=== PATIENT | female | born 1985 | race Caucasian/White ===

== ENCOUNTER 2018-11-26 22:11 | Inpatient (IN) ==
[2018-11-26] MEDS ORDERED: BUTORPHANOL 2 MG/ML VIAL IV PRN (22:28)
[2018-11-26] MEDS ORDERED: ACETAMINOPHEN 325 MG TABLET PO PRN (22:28)
[2018-11-26] MEDS ORDERED: MEPERIDINE 50 MG/1 ML VIAL IV PRN (22:28)
[2018-11-26] MEDS: LACTATED RINGERS 1,000 ML IV SCH (22:30)
[2018-11-26] MEDS ORDERED: PROMETHAZINE 25 MG/1 ML VIAL IM ONE (22:48)
[2018-11-26] MEDS ORDERED: CITRIC ACID/SODIUM CITRATE 30 ML UDCUP PO ONE (22:48)
[2018-11-26] MEDS ORDERED: NALOXONE 0.4 MG/ML VIAL IV PRN (22:48)
[2018-11-26] MEDS ORDERED: hydrOXYzine HCL 25 MG/1 ML VIAL IM PRN (22:48)
[2018-11-26] MEDS ORDERED: ePHEDrine 50 MG/ML AMP IV PRN (22:48)
[2018-11-26] MEDS ORDERED: FAMOTIDINE 20 MG/2 ML VIAL IV ONE (22:48)
[2018-11-26] MEDS ORDERED: diphenhydrAMINE 50 MG/1 ML VIAL IV PRN (22:48)
[2018-11-26 23:00] LABS: Basophils # 0.1 10*3/uL (0.0-0.2); Basophils % 0.3 % (0.0-0.8); Eosinophils # 0.1 10*3/uL (0.0-0.87); Eosinophils % 0.5 % (0.00-10.9); Hematocrit 38.3 VOL% (35.7-47.0); Hemoglobin 12.8 GM/DL (12.0-16.0); Immature Granulocytes % 1.2 %; Lymphocytes # 2.9 10*3/uL (1.4-4.0); Lymphocytes % 17.4 % (21.3-54.2); Mean Corpuscular HGB Conc 33.4 GM/DL (32-36); Mean Corpuscular Volume 91.6 FL (87-102); Mean Platelet Volume 11.3 FL (9.6-12.0); Monocytes % 10.5 % (1.7-12.7); Neutrophils % 70.1 % (38.7-73.9); Platelet Count 213 T/CUMM (130-400); Red Blood Count 4.18 MC/CUMM (3.8-5.5); Red Cell Distribution Width 13.8 % (9.3-17.3); White Blood Count 16.4 T/CUMM (4-12)
[2018-11-26] MEDS: ONDANSETRON 4 MG/2 ML VIAL IV PRN (23:00)
[2018-11-26 23:28] LABS: Alanine Aminotransferase 15 U/L (13-56); Albumin 2.8 G/DL (3.4-5.0); Alkaline Phosphatase 142 U/L (45-117); Aspartate Amino Transferase 16 U/L (0-37); Bilirubin,Total < 0.39 MG/DL (0.2-1.0); Blood Urea Nitrogen 7 MG/DL (7-18); Calcium 8.9 MG/DL (8.5-10.1); Estimated Glom Filtration Rate 119 ML/MIN; Glucose 82 MG/DL (74-106); Osmolality,Calculated 275.4 MOS/KG (273-304); Total Protein 6.4 G/DL (6.4-8.3)
[2018-11-27] MEDS: LACTATED RINGERS 1,000 ML IV SCH (00:05)
[2018-11-27] MEDS: fentaNYL 2 MCG/ROPIV 0.2% EPID 100 ML EPIDURAL SCH ×2 (00:20→08:00)
[2018-11-27 01:25] LABS: Apearance,Urine CLEAR (Clear); Bilirubin,Urine Negative (Negative); Blood, Urine Moderate mg/dL (Negative); Glucose,Urine (UA) Negative (Negative); Ketones,Urine 20 mg/dL (Negative); Nitrite,Urine Negative (Negative); Protein,Urine Negative; RBC,Urine 29 /HPF (0-4); Squamous Epithelial Cell,Urine Occasional /HPF (0-10); Urine Color Yellow (Yellow); Urine Urobilinogen < 2.0 EU/DL (0.2-1.0); WBC,Urine 1 /HPF (0-6)
[2018-11-27] MEDS: OXYTOCIN/LR 20 UNIT/1,000 ML BAG IV SCH ×3 (06:30→16:04)
[2018-11-27] MEDS ORDERED: OXYTOCIN/LR 20 UNIT/1,000 ML BAG IV SCH (07:30)
[2018-11-27] MEDS ORDERED: miSOPROStoL 200 MCG TABLET ONE ×2 (07:57→13:32)
[2018-11-27] MEDS ORDERED: CARBOPROST TROMETHAMINE 250 MCG/ML AMP IM ONE (07:57)
[2018-11-27] MEDS ORDERED: METHYLERGONOVINE 0.2 MG/1 ML AMP ONE (07:57)
[2018-11-27] MEDS ORDERED: TRANEXAMIC ACID 1,000 MG/10 ML VIAL ONE (07:57)
[2018-11-27] MEDS ORDERED: LIDOCAINE 1% 50 ML VIAL ONE (12:12)
[2018-11-27] MEDS ORDERED: miSOPROStoL 200 MCG TABLET PO ONE (12:30)
[2018-11-27] MEDS ORDERED: METHYLERGONOVINE 0.2 MG/1 ML AMP IM ONE (12:32)
[2018-11-27] MEDS: ONDANSETRON 4 MG/2 ML VIAL IV PRN (13:37)
[2018-11-27] MEDS ORDERED: CLINDAMYCIN 600 MG/4 ML VIAL IV SCH (16:30)
[2018-11-27] MEDS ORDERED: BENZOCAINE 20%/MENTHOL 0.5% SPRAY 56 GM CAN TOP PRN (17:35)
[2018-11-27] MEDS ORDERED: HYDROCORTISONE 2.5% RECTAL CREAM 30 GM TUBE TOP PRN (17:36)
[2018-11-27] MEDS ORDERED: WITCH HAZEL PADS 100/JAR TOP PRN (17:43)
[2018-11-27] MEDS: ACETAMINOPHEN/CODEINE 300-30 MG TABLET PO PRN (17:53)
[2018-11-27] MEDS: CLINDAMYCIN INJ 450 MG in SODIUM CHLORIDE 0.9% 100 ML IV SCH (20:44)
[2018-11-27] MEDS: DOCUSATE SODIUM 100 MG CAPSULE PO SCH (21:22)
[2018-11-28] MEDS: ACETAMINOPHEN/CODEINE 300-30 MG TABLET PO PRN (00:09)
[2018-11-28] MEDS: CLINDAMYCIN INJ 450 MG in SODIUM CHLORIDE 0.9% 100 ML IV SCH (05:42)
[2018-11-28 05:59] LABS: Basophils # 0.1 10*3/uL (0.0-0.2); Basophils % 0.3 % (0.0-0.8); Eosinophils # 0.1 10*3/uL (0.0-0.87); Eosinophils % 0.4 % (0.00-10.9); Hematocrit 29.6 VOL% (35.7-47.0); Hemoglobin 9.9 GM/DL (12.0-16.0); Immature Granulocytes % 1.3 %; Immature Granulocytes Absolute 0.31 #; Lymphocytes # 3.3 10*3/uL (1.4-4.0); Lymphocytes % 14.2 % (21.3-54.2); Mean Corpuscular HGB Conc 33.4 GM/DL (32-36); Mean Corpuscular Volume 92.8 FL (87-102); Mean Platelet Volume 11.7 FL (9.6-12.0); Monocytes % 12.7 % (1.7-12.7); Neutrophils % 71.1 % (38.7-73.9); Platelet Count 171 T/CUMM (130-400); Red Blood Count 3.19 MC/CUMM (3.8-5.5); Red Cell Distribution Width 14.1 % (9.3-17.3); White Blood Count 23.5 T/CUMM (4-12)
[2018-11-28 06:27] LABS: Platelet Estimate Decreased; Polychromasia Slight
[2018-11-28] MEDS: DOCUSATE SODIUM 100 MG CAPSULE PO SCH ×2 (09:44→21:43)
[2018-11-28] MEDS ORDERED: IBUPROFEN 800 MG TABLET PO PRN (22:52)
[2018-11-29 07:17] VITALS: BP 97/61
[2018-11-29] MEDS: DOCUSATE SODIUM 100 MG CAPSULE PO SCH (07:29)
[2018-11-29] MEDS ORDERED: DIPH/TET/ACEL PERT BOOSTER VACCINE 0.5 ML VIAL IM ONE (12:23)
== END 2018-11-29 13:10 | disposition home or self-care (01) | DRG 768 ==
LOC: N.LDOUT 22:11 → N.LD 22:11 → N.OB 11-27 17:12
PROVIDERS: ADMIT Obstetrics & Gynecology; ATTEND Obstetrics & Gynecology

== ENCOUNTER 2021-01-18 07:42 | Inpatient (IN) ==
[2021-01-18] MEDS: LACTATED RINGERS 1,000 ML IV SCH ×3 (08:00→22:09)
[2021-01-18] MEDS ORDERED: CARBOPROST TROMETHAMINE 250 MCG/ML AMP IM PRN (08:28)
[2021-01-18] MEDS ORDERED: miSOPROStoL 200 MCG TABLET VAG PRN (08:28)
[2021-01-18] MEDS ORDERED: ONDANSETRON 4 MG/2 ML VIAL IV PRN ×2 (08:28→08:36)
[2021-01-18] MEDS ORDERED: OXYTOCIN/LR 20 UNIT/1,000 ML BAG IV SCH (08:30)
[2021-01-18] MEDS ORDERED: PROMETHAZINE 25 MG/1 ML VIAL IM PRN (08:36)
[2021-01-18] MEDS ORDERED: NALOXONE 0.4 MG/ML VIAL IV PRN (08:36)
[2021-01-18] MEDS ORDERED: diphenhydrAMINE 50 MG/1 ML VIAL IV PRN (08:36)
[2021-01-18] MEDS ORDERED: CITRIC ACID/SODIUM CITRATE 30 ML UDCUP PO ONE (08:36)
[2021-01-18] MEDS ORDERED: hydrOXYzine HCL 25 MG/1 ML VIAL IM PRN (08:36)
[2021-01-18] MEDS ORDERED: ePHEDrine 50 MG/ML VIAL IV PRN (08:36)
[2021-01-18] MEDS ORDERED: FAMOTIDINE 20 MG/2 ML VIAL IV ONE (08:36)
[2021-01-18] MEDS ORDERED: LACTATED RINGERS 1,000 ML IV ONE (08:36)
[2021-01-18 08:52] LABS: Basophils % 0.4 % (0.0-0.8); Eosinophils % 0.4 % (0.00-10.9); Hematocrit 39.5 VOL% (35.7-47.0); Hemoglobin 12.8 GM/DL (12.0-16.0); Immature Granulocytes % 0.8 %; Immature Granulocytes Absolute 0.07 #; Lymphocytes % 21.2 % (21.3-54.2); Mean Corpuscular HGB Conc 32.4 GM/DL (32-36); Mean Corpuscular Volume 93.2 FL (87-102); Mean Platelet Volume 10.9 FL (9.6-12.0); Monocytes % 8.9 % (1.7-12.7); Neutrophils % 68.3 % (38.7-73.9); Platelet Count 225 T/CUMM (130-400); Red Blood Count 4.24 MC/CUMM (3.8-5.5); Red Cell Distribution Width 13.8 % (9.3-17.3); White Blood Count 9.3 T/CUMM (4-12)
[2021-01-18] MEDS ORDERED: MEPERIDINE 50 MG/1 ML VIAL IV PRN (12:39)
[2021-01-18] MEDS: fentaNYL 2 MCG/ROPIV 0.2% EPID 100 ML EPIDURAL SCH ×2 (13:20→19:47)
[2021-01-18 14:24] LABS: Amorphous Crystals,Urine Occasional /HPF (Few); Bacteria,Urine Occasional /HPF (Few); Bilirubin,Urine Negative (Negative); Blood, Urine Small mg/dL (Negative); Glucose,Urine (UA) Negative (Negative); Ketones,Urine Negative (Negative); Mucus,Urine Occasional /LPF (Occasional); Nitrite,Urine Negative (Negative); Protein,Urine Negative; RBC,Urine 2 /HPF (0-4); Squamous Epithelial Cell,Urine Occasional /HPF (0-10); Urine Appearance CLEAR (Clear); Urine Color Yellow (Yellow); Urine Specific Gravity 1.013 (1.001-1.035); Urine Urobilinogen < 2.0 EU/DL (0.2-1.0)
[2021-01-18] MEDS ORDERED: BUTALBITAL/ACETAMIN/CAFFEINE 50-325-40 MG TABLET PO PRN (20:28)
[2021-01-18] MEDS ORDERED: OXYTOCIN/LR 20 UNIT/1,000 ML BAG IV ONE (21:38)
[2021-01-18] MEDS ORDERED: METHYLERGONOVINE 0.2 MG/1 ML AMP ONE (21:38)
[2021-01-18] MEDS ORDERED: miSOPROStoL 200 MCG TABLET ONE (21:38)
[2021-01-18] MEDS ORDERED: TRANEXAMIC ACID 1,000 MG/10 ML VIAL ONE (21:38)
[2021-01-18] MEDS ORDERED: SODIUM CHLORIDE 0.9% 0 ML IV ONE (21:38)
[2021-01-18] MEDS ORDERED: CARBOPROST TROMETHAMINE 250 MCG/ML AMP IM ONE (21:39)
[2021-01-18] MEDS ORDERED: LIDOCAINE 1% 50 ML VIAL ONE (23:11)
[2021-01-18 23:28] LABS: Cord Venous Blood HCO3 21.9 MMOL/L; Cord Venous Blood PCO2 41.7 MMHG; Cord Venous Blood PO2 35.1
[2021-01-19] MEDS ORDERED: OXYTOCIN/LR 20 UNIT/1,000 ML BAG IV PRN (00:05)
[2021-01-19] MEDS: oxyCODONE/ACETAMINOPHEN 5-325 MG TABLET PO PRN ×2 (00:11→13:38)
[2021-01-19] MEDS: IBUPROFEN 800 MG TABLET PO PRN ×3 (00:37→21:38)
[2021-01-19] MEDS ORDERED: WITCH HAZEL PADS 100/JAR TOP PRN (01:42)
[2021-01-19] MEDS ORDERED: BENZOCAINE 20%/MENTHOL 0.5% SPRAY 56 GM CAN TOP PRN (01:42)
[2021-01-19 05:35] LABS: Basophils % 0.2 % (0.0-0.8); Eosinophils % 0.1 % (0.00-10.9); Hematocrit 33.7 VOL% (35.7-47.0); Hemoglobin 11.1 GM/DL (12.0-16.0); Immature Granulocytes % 0.5 %; Immature Granulocytes Absolute 0.09 #; Lymphocytes # 2.1 10*3/uL (1.4-4.0); Lymphocytes % 10.6 % (21.3-54.2); Mean Corpuscular HGB Conc 32.9 GM/DL (32-36); Mean Corpuscular Volume 93.6 FL (87-102); Mean Platelet Volume 11.3 FL (9.6-12.0); Neutrophils % 80.6 % (38.7-73.9); Platelet Count 181 T/CUMM (130-400); Red Cell Distribution Width 13.8 % (9.3-17.3); White Blood Count 19.8 T/CUMM (4-12)
[2021-01-19] MEDS: MULTIVITAMIN (PRENATAL) TABLET PO SCH ×2 (07:56→09:40)
[2021-01-19] MEDS: DOCUSATE SODIUM 100 MG CAPSULE PO SCH ×3 (07:56→21:38)
[2021-01-20] MEDS: IBUPROFEN 800 MG TABLET PO PRN (06:49)
[2021-01-20 08:18] VITALS: BP 90/56
[2021-01-20 08:20] LABS: Basophils % 0.2 % (0.0-0.8); Eosinophils # 0.1 10*3/uL (0.0-0.87); Eosinophils % 0.8 % (0.00-10.9); Hematocrit 28.6 VOL% (35.7-47.0); Hemoglobin 9.2 GM/DL (12.0-16.0); Immature Granulocytes Absolute 0.12 #; Lymphocytes # 2.3 10*3/uL (1.4-4.0); Lymphocytes % 18.4 % (21.3-54.2); Mean Corpuscular HGB Conc 32.2 GM/DL (32-36); Monocytes % 9.3 % (1.7-12.7); Neutrophils % 70.3 % (38.7-73.9); Platelet Count 188 T/CUMM (130-400); Red Blood Count 3.01 MC/CUMM (3.8-5.5); Red Cell Distribution Width 14.2 % (9.3-17.3); White Blood Count 12.3 T/CUMM (4-12)
[2021-01-20] MEDS: MULTIVITAMIN (PRENATAL) TABLET PO SCH (08:44)
[2021-01-20] MEDS: DOCUSATE SODIUM 100 MG CAPSULE PO SCH (08:44)
== END 2021-01-20 11:55 | disposition home or self-care (01) | DRG 768 ==
LOC: N.LD 07:42 → N.OB 01-19 01:48
PROVIDERS: ADMIT Obstetrics & Gynecology; ATTEND Obstetrics & Gynecology